=== PATIENT | female | born 1995 | race Caucasian/White ===

== ENCOUNTER 2017-04-23 22:49 | Emergency (ER) | payer BC, OTHER ==
[~2017-04-23] VITALS: Ht 157.5 cm; Wt 67.6 kg
--- NOTE | 2017-04-23 22:57 | PHYS DOC ---
Past History Past Medical History: Depression, Other Past Surgical History: No Surgical History, Other Smoking: Quit Less Than 1 Year Alcohol Use: Rarely Drug Use: None Adult General Chief Complaint Chief Complaint: Vaginal bleeding HPI HPI Patient is a 22 year old female who presents with vaginal bleeding. She is 7 weeks by dates (LMP 03/09/17) and is followed by Dr Ordonez for "high risk" . 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 She was seen today by her OB 'and heard the heartbeat." Tonight at 2200 PM she had cramping and bleeding. No loss of tissue. It has slowed since now. No fever. Review of Systems Review of Systems Constitutional: Denies fever or chills Eyes: Denies change in visual acuity, redness, or eye pain HENT: Denies nasal congestion or sore throat Respiratory: Denies cough or shortness of breath Cardiovascular: No chest pain GI: Denies abdominal pain, nausea, vomiting, bloody stools or diarrhea : Denies dysuria or hematuria; Notes vaginal bleeding today. Musculoskeletal: Denies back pain or joint pain Integument: Denies rash or skin lesions Neurologic: Denies headache, focal weakness or sensory changes Allergies Allergies Allergies Coded Allergies Type Severity Reaction Last Updated Verified No Known Drug Allergies 06/02/15 No Physical Exam Physical Exam Constitutional: Well developed, well nourished, no acute distress, non-toxic appearance. HENT: Normocephalic, atraumatic, bilateral external ears normal, oropharynx moist, no oral exudates, nose normal. Eyes: PERRLA, EOMI, conjunctiva normal, no discharge. Neck: Normal range of motion, no tenderness, supple, no stridor. Cardiovascular:Heart rate regular rhythm, no murmur Lungs & Thorax: Bilateral breath sounds clear to auscultation Abdomen: Bowel sounds normal, soft, no tenderness, no masses, no pulsatile masses. 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 Skin: Warm, dry, no erythema, no rash. Back: No tenderness, no CVA tenderness. Extremities: No tenderness, no cyanosis, no clubbing, ROM intact, no edema. Neurologic: Alert and oriented X 3, normal motor function, normal sensory function, no focal deficits noted. Psychologic: Affect normal, judgement normal, mood normal. Current Patient Data Lab Results Urine positive. Laboratory Tests Test 04/23/17 23:14 04/23/17 23:25 Bedside Urine HCG, Qualitative hcg positive White Blood Count 8.9 x10^3/uL Red Blood Count 4.39 x10^6/uL Hemoglobin 13.1 g/dL Hematocrit 38.7 % Mean Corpuscular Volume 88 fL Mean Corpuscular Hemoglobin 30 pg Mean Corpuscular Hemoglobin Concent 34 g/dL Red Cell Distribution Width 13.3 % Platelet Count 273 x10^3/uL Neutrophils (%) (Auto) 51 % Lymphocytes (%) (Auto) 37 % Monocytes (%) (Auto) 8 % Eosinophils (%) (Auto) 3 % Basophils (%) (Auto) 1 % Neutrophils # (Auto) 4.6 x10^3uL Lymphocytes # (Auto) 3.3 x10^3/uL Monocytes # (Auto) 0.7 x10^3/uL Eosinophils # (Auto) 0.2 x10^3/uL Basophils # (Auto) 0.1 x10^3/uL Urine Collection Type Unknown Urine Color Yellow Urine Clarity Hazy Urine pH 6.5 Urine Specific Kemp 1.020 Urine Protein Trace Urine Glucose (UA) Neg mg/dL Urine Ketones (Stick) Trace mg/dL Urine Blood Mod Urine Nitrite Neg Urine Bilirubin Neg Urine Urobilinogen Dipstick 0.2 mg/dL Urine Leukocyte Esterase Neg Urine RBC 3-5 /HPF Urine WBC 0 /HPF Urine Squamous Epithelial Cells Few /LPF Urine Calcium Phosphate Crystals Present /HPF Urine Bacteria Few /HPF Current Medications Medications (Trade) Dose Ordered Sig/Ashleigh Route PRN Reason Start Time Stop Time Status Last Admin Dose Admin Sodium Chloride 500 ml @ 500 mls/hr Q1H IV 04/23/17 23:30 04/23/17 23:30 DC 04/23/17 23:21 Blood type A positive Radiology/Procedures Radiology/Procedures US: 6 weeks 1 day with good heartbeat Course & Med Decision Making Course & Med Decision Making Pertinent Labs and Imaging studies reviewed. (See chart for details) Evaluated patient; confirmed pos preg test and ordered quant HCG. Do not have access to blood bank ([facility]) ordered. US ordered 0020 AM: US done with good heartbeat. Blood type A positive. CBC normal. Threatened AB precautions given. Home with S.O. She has a f/u appt w OB soon already scheduled. Dragon Disclaimer Dragon Disclaimer This chart was dictated in whole or in part using Voice Recognition software in a busy, high-work load, and often noisy Emergency Department environment. It may contain unintended and wholly unrecognized errors or omissions. Departure Departure: Impression: Primary Impression: Threatened in early Disposition: HOME, SELF-CARE Condition: GOOD Patient Instructions: Miscarriage Additional Instructions: YOUR BLOOD TYPE IS A POSITIVE. US HERE SHOWED 6 WEEKS 1 DAY WITH HEARTBEAT NOTHING IN VAGINA; WORK NOTE PROVIDED. REST MARIE DOSHI MD Apr 23, 2017 22:57
[2017-04-23] MEDS ORDERED: IV NORMAL SALINE 500ML 500 ML IV SCH (23:30)
[2017-04-23 23:40] LABS: BASO # 0.1 x10^3/uL (0.0-0.2); BASO % 1 % (0-3); EOS # 0.2 x10^3/uL (0.0-0.7); EOS % 3 % (0-3); HEMATOCRIT 38.7 % (36.0-47.0); HEMOGLOBIN 13.1 g/dL (12.0-15.5); LYMPH # 3.3 x10^3/uL (1.0-4.8); LYMPH % 37 % (24-48); MEAN CORPUSCULAR HEMOGLOBIN 30 pg (25-35); MEAN CORPUSCULAR HGB CONC 34 g/dL (31-37); MEAN CORPUSCULAR VOLUME 88 fL (79-100); MONO # 0.7 x10^3/uL (0.0-1.1); MONO % 8 % (0-9); NEUT # 4.6 x10^3uL (1.8-7.7); NEUT % 51 % (31-73); PLATELET COUNT 273 x10^3/uL (140-400); RED BLOOD COUNT 4.39 x10^6/uL (3.50-5.40); RED CELL DISTRIBUTION WIDTH 13.3 % (11.5-14.5); WHITE BLOOD COUNT 8.9 x10^3/uL (4.0-11.0)
[2017-04-23 23:58] LABS: BACTERIA,URINE FEW /HPF (0-FEW); BILIRUBIN,URINE NEG (NEG); CLARITY,URINE HAZY; COLOR,URINE YELLOW; GLUCOSE,URINE NEG (NEG); NITRITE,URINE NEG (NEG); SQUAMOUS EPITHELIAL CELL,UR FEW /LPF; UROBILINOGEN,URINE 0.2 mg/dL (0.2 mg/dL); WBC,URINE 0 /HPF (0-4)
[2017-04-24 00:26] VITALS: BP 94/60
--- NOTE | 2017-04-24 00:59 | RAD ---
OB <14 WKS W/TV Clinical Indication: vag bleeding x 2 hrs Comparison: None. TECHNIQUE: Real-time ultrasound imaging of the pelvis using transabdominal and transvaginal window is performed. Findings: Uterus measures 10 x 5.5 x 4 cm. Cervical length approximately 3.8 cm. There is intrauterine gestational sac, contour appears normal. No perigestational hemorrhage. Gestational sac contains a yolk sac and pole. [place] rump length 0.5 cm, 6 weeks and 1 day. Estimated heart rate 113 bpm. Tiny amount of cul-de-sac free fluid. The right ovary measures 4.4 x 2.7 x 3.1 cm. There is a probable right corpus luteum measuring up to 2.8 cm. Left ovary measures 3.1 x 1.5 x 1 cm. IMPRESSION: 1. Single live intrauterine gestation, estimated sonographic gestational age 6 weeks and 1 day. 2. Probable right corpus luteum. 3. Trace cul-de-sac free fluid. Electronically signed by: Tyler Maldonado MD (04/24/2017 12:55 AM) [facility]
== END 2017-04-24 00:42 | disposition home or self-care (01) ==
LOC: ER 22:49
DX: O20.0 Threatened abortion (principal); Z3A.01 Less than 8 weeks gestation of pregnancy; Z87.891 Personal history of nicotine dependence
CPT/HCPCS: 36415; 76801; 76817; 81001; 81025; 84702; 85027; 86900; 86901; 96360; 99285; J7040